=== PATIENT | female | born 1965 | race Caucasian/White ===

== ENCOUNTER 2018-04-13 21:27 | Inpatient (IN) | payer OTHER ==
[~2018-04-13] VITALS: Ht 165.1 cm; Wt 65.9 kg
[2018-04-13 22:03] LABS: BASOPHILS ABSOLUTE AUTO 0.04 K/mm3 (0.00-0.23); BASOPHILS PERCENT AUTO 1 % (0-2); EOSINOPHILS ABSOLUTE AUTO 0.12 K/mm3 (0.00-0.68); EOSINOPHILS PERCENT AUTO 2 % (0-6); Hematocrit 38.6 % (33.0-51.0); Hemoglobin 12.6 g/dL (11.5-16.0); IMMATURE GRAN ABSOLUTE AUTO 0.01 K/mm3 (0.00-0.10); IMMATURE GRAN PERCENT AUTO 0 % (0-1); LYMPHOCYTES ABSOLUTE AUTO 2.14 K/mm3 (0.84-5.20); LYMPHOCYTES PERCENT AUTO 32 % (21-46); MONOCYTES ABSOLUTE AUTO 0.54 K/mm3 (0.16-1.47); MONOCYTES PERCENT AUTO 8 % (4-13); Mean Corpuscular HGB 30.2 pg (26.0-34.0); Mean Corpuscular HGB Conc 32.6 g/dL (31.5-36.5); Mean Corpuscular Volume 93 fL (80-100); Mean Platelet Volume 8.6 fL (9.1-12.4); NEUTROPHILS ABSOLUTE AUTO 3.76 K/mm3 (1.96-9.15); NEUTROPHILS PERCENT AUTO 57 % (41-73); Platelet Count 382 K/mm3 (150-400); RDW Coefficient Variation 13.2 % (11.7-14.2); RDW Standard Deviation 45.5 fL (35.1-46.3); Red Blood Cell Count 4.17 M/mm3 (3.80-5.20); White Blood Cell Count 6.61 K/mm3 (4.00-11.30)
[2018-04-13 22:25] LABS: Albumin, Blood 4.1 g/dL (3.4-5.0); Albumin/Globulin Ratio 1.2 (0.8-1.8); Bilirubin, Total 0.3 mg/dL (0.1-1.0); Bun/Creatinine Ratio 12.7 (12.0-20.0); Calcium, Blood 8.9 mg/dL (8.5-10.1); Creatinine, Blood 1.18 mg/dL (0.40-1.00); Globulin, Blood 3.3 g/dL (2.2-4.0); Potassium, Blood 3.5 mmol/L (3.5-5.5); Total Protein, Blood 7.4 g/dL (6.4-8.2); Troponin I 0.328 ng/mL (0.000-0.040)
[2018-04-14 00:12] LABS: International Normalized Ratio 1.03; Prothrombin Time Results 10.9 Sec (9.7-11.5)
--- NOTE | 2018-04-14 03:15 | NUR ---
PT ARRIVAL. PT ARRIVED ON UNIT AT 0302 VIA GURNEY, PT WAS ABLE TO SELF TRANSFER FROM GURNEY TO BED, PT IS IND IN THE ROOM. PT ARRIVED WITH HEPARIN GTT AT 16.6ML/HR FOR 13U/KG/HR AT A DOSE WT OF 64KG, VERIFIED BY ANAI EARL. PT DENIES ANY CHEST PAIN/PRESSURE, SOB OR N/V AT THIS TIME. PT HAS NITRO PATCH ON LEFT UPPER CHEST. TELE WAS PLACED, NSR IN THE 70'S PER MANAGER OF PATIENT. PT'S BP UPON ARRIVAL WAS 85/51, PT'S LAST BP IN THE ER WAS 118/70. PT IS UNSYMPTOMATIC AT THIS TIME OF HYPOTENSION. L/S CLEAR T/O, O2 STATS ARE 97% ON RA, BT PRESENT AND HYPERACTIVE, ABD IS SOFT AND NONTENDER TO PALP. CALL LIGHT IN REACH, BED IS LOCKED AND LOW WILL CONTINUE TO MONITOR.
[2018-04-14 04:25] LABS: Cholesterol 158 mg/dL (50-200); HDL Cholesterol 52 mg/dL (>39); LDL/HDL RATIO 1.9; Low Density Lipoprotein Chol 97 mg/dL (0-110); Triglycerides 44 mg/dL (30-160); Very Low Density Lipoprot Chol 8 mg/dL (6-32)
--- NOTE | 2018-04-14 05:39 | NUR ---
SHIFT SUMMARY. NO ACUTE CHANGES NOTED. PT'S BP IS CURRENTLY 90/53 WITH A HR OF 64. PT IS NOT SYMPOMATIC OF HYPOTENSION AT THIS TIME. PT DENIES CHEST PAIN OR PRESSURE SINCE ADMIT TO UNIT. PT'S TROPONINS ARE TRENDING UP (SEE LABS). PT HAS BEEN NPO SINCE ADMIT TO UNIT AT 0300. HEPARIN GTT RUNNING AT 16.6MLS/HR 13U/KG/HR W/DOSE WT OF 64KG. CALL LIGHT IN REACH, BED IS LOCKED AND LOW WILL CONTINUE TO MONITOR UNTIL REPORT IS GIVEN TO ONCOMING RN.
--- NOTE | 2018-04-14 12:50 | NUR ---
ECHOCARDIOGRAM COMPLETED
--- NOTE | 2018-04-14 15:11 | NUR ---
Note Pt resting quietly. sr. no ectopy. SBP 90"s after coreg. Heparin gtt infusing at 14 u/kg/hr per pharmacy directions. Pt alert and oriented. Tolerated resting portion of stress test. Family at bedside. SHe was talking to spouce about stopping smoking. Pt up ad surjit. Gait steady. Voiding per BRP. Manages the pump well. Ate lunch after stress test. Continue pot.
--- NOTE | 2018-04-14 18:15 | NUR ---
HEALTH HISTORY PT RELATES THAT SHE HAS BEEN IN ETOH REHAB 7 TIMES. SHE HAS BEEN SUICIDAL MULTIPLE TIMES SINCE THE AGE OF 14. DENIED CURRENT SUICIDAL THOUGHTS/FEELINGS. SHE STARTED DRINKING ALCOHOL AT THE AGE OF 14 AND STARTED CUTTING HERSELF. SHE HAS SCARS ON HER LEFT ARM FROM THE CUTS. SHE USED TO GO TO DR RHOADES HER PCP. 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 PT WOULD DRINK UNTIL BLACKOUT. PT RELATED STORIES ABOUT HOW HER LIFE AND WORK WERE SCHEDULED AROUND HER DRINKING/METH. HER CURRENT WAS AN ALCOHOLIC WELL. HE NO LONGER DRINKS TO SUPPORT HER. SHE DOES GO TO AA MEETINGS AT TIMES. SHE DOESN'T GO CONSISTENTLY. SHE WENT THROUGH THE [facility] THE LAST TIME. SHE FEELS COMFORTABLE HERE. SHE DENIES STRESS AND ANXIETY. SHE HAS A [employer] DISPOSITION. SHE IS MOST WORRIED ABOUT HER JOB. SHE CALLED THE POST MASTER AND WAS REASSURED THAT HER SHIFTS ARE COVERED. FAMILY HAS BEEN IN AND OUT ALL DAY. CONTINUE POT.
--- NOTE | 2018-04-14 19:30 | NUR ---
PM NOTE. ASSUMED CARE OF PT APROX 1900, PT IS A&Ox4 AND IND IN THE ROOM. PT IS SCHEDULED TO HAVE THE 2ND PART OF HER STRESS TEST TOMORROW. SHE IS TO BE NPO AFTER BREAKFAST IN THE AM. NITRO PATCH WAS REMOVED DUE TO STRESS TEST PROTOCOL. TELE INTACT, NSR IN THE 60'S PER AUTO CLAIM REPRESENTATIVE. PT'S BP 110/63. NO EDEMA NOTED ON ASSESSMENT. BREATHING IS E/U. L/S CLEAR T/O. BT PRESENT AND HYPERACTIVE, ABD IS SOFT AND NONTENDER TO PALP. PT DENIES CHEST PAIN/PRESSURE AT THIS TIME. PT DOES COMPLAIN OF A 5/10 HEADACHE AND WAS MEDICATED PER EMAR. CALL LIGHT IN REACH, BED IS LOCKED AND LOW WILL CONTINUE TO MONITOR.
--- NOTE | 2018-04-14 21:45 | NUR ---
PT UPDATE... PT CALLED THIS RN INTO THE ROOM TO REPORT SHARP STABBING CHEST PAIN IN THE STERNAL AREA, PAIN WAS 3/10. PT'S NITRO PATCH WAS REMOVED APROX 1.5 HOURS PRIOR TO CHEST PAIN OCCURING. CREDIT DEPARTMENT MANAGER WAS CALLED AND ORDERS OBTAINED FOR NITRO PASTE TO BE PLACED FOR 4 HOURS AND THEN REMOVED AND ASA 650 MG ONE TIME DOSE.
--- NOTE | 2018-04-14 22:30 | NUR ---
PT UPDATE... PT IS COMPLAINING THAT THE CHEST PAIN HAS MOVED TO HER UPPER BACK AREA, THIS PAIN IS A 4/10. PT STATES "I JUST DON'T FEEL WELL RIGHT NOW." WILL CONTINUE TO MONITOR.
--- NOTE | 2018-04-14 22:40 | NUR ---
PT UPDATE... PT WAS REASSESSED, PT'S BP 91/56 AND HR 67. PT STATED THAT HER CHEST PAIN/BACK PAIN WAS GONE AT THIS TIME. WILL CONTINUE TO MONITOR.
--- NOTE | 2018-04-15 05:40 | NUR ---
SHIFT SUMMARY. NO ACUTE CHANGES NOTED SINCE PREVIOUS NURSE NOTES. NITRO PASTE WAS REMOVED PER DOCTOR'S ORDERS AT 0145, AREA WAS CLEANED WITH WET WASH CLOTH AND DRIED. PT DENIES CHEST PAIN/PRESSURE AT THIS TIME, VS HAVE BEEN STABLE. HEAPRIN GTT IS RUNNING AT 17.0 U/KG/HR, 21.8 MLS/HR WITH A DOSE WT OF 64 KG, THIS HAS BEEN INDEPENDENTLY VERIFIED BY YOSVANY EARL. PT IS SCHEUDLED FOR 2ND PART OF STRESS TEST TODAY, PT IS ABLE TO EAT BREAKFAST AND THEN IS TO BE NPO. PT HAS NOT HAD ANY CAFFINE, CHOCOLATE OR ICE CREAM THIS SHIFT. CALL LIGHT IN REACH, BED IS LOCKED AND LOW WILL CONTINUE TO MONITOR UNTIL REPORT IS GIVEN TO ONCOMING RN.
[2018-04-15 06:02] LABS: Mean Platelet Volume 8.9 fL (9.1-12.4); Platelet Count 306 K/mm3 (150-400)
--- NOTE | 2018-04-15 11:21 | NUR ---
Patient was lying in bed and alert when I entered the room. I introduced myself and patient stated that she was glad for a visit. Therapeutic alliance was easily established so patient openly shared about her current medical condition, her past addictions and struggles and her family unit complications. 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 I listened empathically, explored patient's spiritual beliefs, encouraged self care, provided spiritual direction and prayer. Patient responded well to all interventions and showed signs of restored colby. Patient expressed gratitude for the visit.
--- NOTE | 2018-04-16 04:10 | NUR ---
SHIFT SUMMARY PT A&O X4. INDEPENDENT IN ROOM. PT DENIES CP. MONITOR SHOWS SB/NSR, HR 50'S-60'S. HEPARIN GTT INFUSING PER ORDERS. LUNG SOUNDS CLEAR T/O, SPO2 > 92% ON RA. PT TO HAVE SECOND PORTION OF STRESS TEST TODAY. WILL CONTINUE TO MONITOR AND PROVIDE CARE UNTIL REPORT OFF TO DAY SHIFT RN.
--- NOTE | 2018-04-16 08:23 | NUR ---
Initial Assessment: Pt resting in bed with physician at bedside. Pt tearful at this time. Voicing some concern with returning to work and the stess with her job. Physician providing assurance. VSS. LS clear. BT positive. Pulses palp. Pt denies C/P or SOB now or through the night. Plan for 2nd portion of stress test today (stress portion). IV heparin running per orders. Pt denies needs. Call light in reach. Will monitor.
--- NOTE | 2018-04-16 11:38 | NUR ---
Spiritual care visit conducted. Patient was sitting up in bed and alert when I entered the room. Because therapeutic alliance is already established from a prior visit patient openly shared about her concerns about re-entry into her frantic life. 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 We discussed scaling things back, doing the the things that are most important and self-care. I provided spiritual direction, companionhip and prayer. Patient responded well to all interventions and showed signs of reduced stress. Patient expressed gratitude for the visit.
[2018-04-16] MEDS ORDERED: ASPI81CH PO (17:29)
[2018-04-16] MEDS ORDERED: ATOR10 PO (17:32)
[2018-04-16] MEDS ORDERED: METO25ER PO (17:33)
--- NOTE | 2018-04-16 18:03 | NUR ---
DISHCARGE: Pt was given verbal and written discharge instructions. Denies questions, verbalized understanding. IV was discontinued, cath intact. RX called to [facility]. Pt ambulated out. stable at time of discharge.
== END 2018-04-16 18:01 | disposition home or self-care (01) | DRG 282 ==
LOC: ER 21:27 → PCU 04-14 00:40
PROVIDERS: Emergency Medicine; ADMIT Hospitalist
DX: I21.4 Non-ST elevation (NSTEMI) myocardial infarction (principal); I10 Essential (primary) hypertension; F10.21 Alcohol dependence, in remission; E11.65 Type 2 diabetes mellitus with hyperglycemia; Z79.4 Long term (current) use of insulin; F17.210 Nicotine dependence, cigarettes, uncomplicated
CPT/HCPCS: 36415; 71046; 78452; 80053; 80061; 83036; 83690; 84484; 85025; 85049; 85610; 85730; 93005; 93010; 93017; 93306; 96361; 96365; 99285-25; A9500; J0706; J1644; J2785; J7030

== ENCOUNTER → 2019-02-18 | Outpatient (CLI) | payer BC ==
[~2019-02-18] MED LIST: ASPI81CH PO; ATOR10 PO; METO25ER PO
[2019-02-18 13:04] LABS: BASOPHILS ABSOLUTE AUTO 0.03 K/mm3 (0.00-0.23); BASOPHILS PERCENT AUTO 1 % (0-2); EOSINOPHILS ABSOLUTE AUTO 0.06 K/mm3 (0.00-0.68); EOSINOPHILS PERCENT AUTO 1 % (0-6); Hematocrit 44.1 % (33.0-51.0); Hemoglobin 14.7 g/dL (11.5-16.0); IMMATURE GRAN ABSOLUTE AUTO 0.02 K/mm3 (0.00-0.10); IMMATURE GRAN PERCENT AUTO 0 % (0-1); LYMPHOCYTES ABSOLUTE AUTO 1.27 K/mm3 (0.84-5.20); LYMPHOCYTES PERCENT AUTO 22 % (21-46); MONOCYTES ABSOLUTE AUTO 0.31 K/mm3 (0.16-1.47); MONOCYTES PERCENT AUTO 5 % (4-13); Mean Corpuscular HGB 30.1 pg (26.0-34.0); Mean Corpuscular HGB Conc 33.3 g/dL (31.5-36.5); Mean Corpuscular Volume 90 fL (80-100); Mean Platelet Volume 8.6 fL (9.1-12.4); NEUTROPHILS ABSOLUTE AUTO 4.15 K/mm3 (1.96-9.15); NEUTROPHILS PERCENT AUTO 71 % (41-73); Platelet Count 331 K/mm3 (150-400); RDW Coefficient Variation 13.5 % (11.7-14.2); RDW Standard Deviation 44.5 fL (35.1-46.3); Red Blood Cell Count 4.89 M/mm3 (3.80-5.20); White Blood Cell Count 5.84 K/mm3 (4.00-11.30)
[2019-02-18 13:13] LABS: Alanine Aminotransfer (ALT/SGP 16 U/L (12-78); Albumin, Blood 4.3 g/dL (3.4-5.0); Albumin/Globulin Ratio 1.4 (0.8-1.8); Alk Phos 56 U/L (40-126); Anion Gap 11 mmol/L (6-16); Aspartate Aminotrans (AST/SGOT 22 U/L (12-37); Bilirubin, Total 0.7 mg/dL (0.1-1.0); Blood Urea Nitrogen 15 mg/dL (8-24); Bun/Creatinine Ratio 17.9 (12.0-20.0); CO2, Blood 27 mmol/L (21-32); Calcium, Blood 9.3 mg/dL (8.5-10.1); Chloride, Blood 104 mmol/L (98-108); Creatinine, Blood 0.84 mg/dL (0.40-1.00); Glomerular Filtration Rate >60 (60-); Glucose, Blood 90 mg/dL (70-99); Potassium, Blood 3.9 mmol/L (3.5-5.5); Sodium, Blood 142 mmol/L (136-145); Total Protein, Blood 7.3 g/dL (6.4-8.2)
== END | disposition home or self-care (01) ==
LOC: LAB SHORT 12:49 → LAB EV 12:49
PROVIDERS: Physician Assistant Medical
DX: R11.2 Nausea with vomiting, unspecified (principal)
CPT/HCPCS: 80053; 85025

== ENCOUNTER → 2019-06-25 | Outpatient (CLI) | payer BC | LOC: LAB EV 19:08 → LAB SHORT 19:08 | DX: J02.9 Acute pharyngitis, unspecified (principal); Z20.828 Contact with and (suspected) exposure to other viral communicable diseases | CPT/HCPCS: 87081; U0003 ==

== ENCOUNTER → 2020-02-13 | Outpatient (CLI) | payer BC ==
[2020-02-13 14:07] LABS: Stool Occult Bld Immuno 1 Negative (NEGATIVE)
== END ==
LOC: LAB SHORT 02-05 07:15 → LAB 07:15 → LAB SHORT 07:15
PROVIDERS: Nurse Practitioner Family
DX: Z12.11 Encounter for screening for malignant neoplasm of colon (principal)
CPT/HCPCS: G0328

== ENCOUNTER → 2020-03-17 | Outpatient (CLI) | payer BC ==
[2020-03-18 16:11] LABS: HPV 16 Negative (Negative); HPV 18 Negative (Negative); HPV OTHER HR TYPES Negative (Negative)
== END ==
LOC: LAB SRC 09:05
PROVIDERS: Nurse Practitioner Family
DX: Z00.00 Encounter for general adult medical examination without abnormal findings (principal)
CPT/HCPCS: 87624; G0123

== ENCOUNTER → 2020-11-02 | Outpatient (CLI) | payer BC ==
[2020-11-02 16:08] LABS: BASOPHILS ABSOLUTE AUTO 0.03 K/mm3 (0.00-0.23); BASOPHILS PERCENT AUTO 1 % (0-2); EOSINOPHILS PERCENT AUTO 2 % (0-6); Hematocrit 44.2 % (33.0-51.0); Hemoglobin 14.7 g/dL (11.5-16.0); IMMATURE GRAN ABSOLUTE AUTO 0.01 K/mm3 (0.00-0.10); IMMATURE GRAN PERCENT AUTO 0 % (0-1); LYMPHOCYTES ABSOLUTE AUTO 1.95 K/mm3 (0.84-5.20); LYMPHOCYTES PERCENT AUTO 29 % (21-46); MONOCYTES ABSOLUTE AUTO 0.39 K/mm3 (0.16-1.47); MONOCYTES PERCENT AUTO 6 % (4-13); Mean Corpuscular HGB Conc 33.3 g/dL (31.5-36.5); Mean Corpuscular Volume 90 fL (80-100); NEUTROPHILS ABSOLUTE AUTO 4.17 K/mm3 (1.96-9.15); NEUTROPHILS PERCENT AUTO 63 % (41-73); Platelet Count 354 K/mm3 (150-400); RDW Coefficient Variation 13.6 % (11.7-14.2); RDW Standard Deviation 45.6 fL (35.1-46.3); White Blood Cell Count 6.65 K/mm3 (4.00-11.30)
[2020-11-02 16:38] LABS: Alanine Aminotransfer (ALT/SGP 22 U/L (12-78); Albumin, Blood 4.3 g/dL (3.4-5.0); Albumin/Globulin Ratio 1.1 (0.8-1.8); Alk Phos 72 U/L (50-136); Anion Gap 4 mmol/L (6-16); Aspartate Aminotrans (AST/SGOT 18 U/L (12-37); Bilirubin, Total 0.4 mg/dL (0.1-1.0); Blood Urea Nitrogen 11 mg/dL (8-24); Bun/Creatinine Ratio 14.7 (12.0-20.0); CO2, Blood 29 mmol/L (21-32); Calcium, Blood 9.6 mg/dL (8.5-10.1); Chloride, Blood 108 mmol/L (98-108); Creatinine, Blood 0.75 mg/dL (0.40-1.00); Globulin, Blood 3.8 g/dL (2.2-4.0); Glomerular Filtration Rate >60 (60-); Glucose, Blood 88 mg/dL (70-99); Sodium, Blood 141 mmol/L (136-145); Total Protein, Blood 8.1 g/dL (6.4-8.2)
== END ==
LOC: LAB 15:56 → LAB SHORT 15:56
PROVIDERS: Physician Assistant
DX: R11.2 Nausea with vomiting, unspecified (principal); R53.83 Other fatigue
CPT/HCPCS: 80053; 83690; 85025

== ENCOUNTER 2023-12-31 19:09 | Emergency (ER) | payer OTHER, BC ==
[~2023-12-31] VITALS: Ht 165.1 cm; Wt 72.6 kg
[2023-12-31 19:30] VITALS: BP 152/95
[2023-12-31] MEDS ORDERED: Ketorolac Tromethamine 15mg Vial IM ONE (19:35)
[2023-12-31] MEDS ORDERED: HYDR1TAB94 PO (20:24)
== END 2023-12-31 21:04 | disposition home or self-care (01) ==
LOC: ER 19:09
DX: S52.502A Unspecified fracture of the lower end of left radius, initial encounter for closed fracture (principal); Z79.82 Long term (current) use of aspirin; Z79.899 Other long term (current) drug therapy; F17.200 Nicotine dependence, unspecified, uncomplicated; W18.30XA Fall on same level, unspecified, initial encounter
CPT/HCPCS: 29125; 73110; 96372-59; 99283-25; J1885

== ENCOUNTER → 2024-10-29 | Outpatient (CLI) | payer OTHER ==
[~2024-10-29] MED LIST changes: +HYDR1TAB94 PO
[2024-10-29 15:31] LABS: Campylobacter Sp Not Detected (NOT DETECT); E. Coli O157 Not Detected (NOT DETECT); Enteroaggregative E. coli-EAEC Not Detected (NOT DETECT); Enteropathogenic E. coli-EPEC Not Detected (NOT DETECT); Enterotoxigenic E. coli-ETEC Not Detected (NOT DETECT); Salmonella Sp Not Detected (NOT DETECT); Shiga Toxin-prod E. coli-STEC Not Detected (NOT DETECT); Shigella/Enteroin E. coli-EIEC Not Detected (NOT DETECT); Vibrio Sp Not Detected (NOT DETECT)
== END ==
LOC: LAB 10:10 → LAB SHORT 10:10
PROVIDERS: Physician Assistant
DX: R19.7 Diarrhea, unspecified (principal)
CPT/HCPCS: 87324; 87507